=== PATIENT | female | born 1950 | race Caucasian/White ===

== ENCOUNTER 2021-11-06 16:40 | Outpatient (REF) | payer MEDICARE, SELFPAY ==
[2021-11-06 17:22] LABS: Influenza A PCR NEGATIVE (Negative); Influenza B PCR NEGATIVE (Negative); Resp Syncy Virus RNA Qual PCR NEGATIVE (Negative); SARS COV2 PCR INHOUSE NEGATIVE (Negative)
== END 2021-11-06 16:41 | disposition home or self-care (01) ==
LOC: HO.LNP 16:40
PROVIDERS: Visit Provider Physician Assistant Medical
DX: Z20.822 Contact with and (suspected) exposure to COVID-19 (principal); R05.9 Cough, unspecified
CPT/HCPCS: 0241U

== ENCOUNTER 2024-08-28 11:01 | Outpatient (AMB) | payer MEDICARE, SELFPAY ==
--- NOTE | 2024-08-28 11:22 | MHC.PC.OV ---
Vital Signs 08/28/24 11:25 Height 5 ft 4 in Weight 181 lb BMI 31.1 BP 152/88 H Blood Pressure Location Lt brachial Position Sitting Pulse 68 Pulse Source Pulse Oximeter Temp 97.3 F Temp Source Temporal Artery Scan Pulse Oximetry (%) 98 Oxygen Delivery Method Room Air Intake Visit Reasons: establish care Mid Level Net Developer Required: No Accompanied by: Self / Same As Patient Allergies erythromycin base (ERYTHROMYCIN BASE) Allergy (Unknown, Verified 08/28/24 11:39) UNKNOWN Medication List - Last Reconciled 08/28/24 by Stephen Ely PA-C No Known Home Meds Tobacco use date assessed: 08/28/24 Fall risk assessment: No Falls in past year Last assessed Fall Risk: 08/28/24 Dental Screening Dental Screen Date: 08/28/24 Did you have a dental visit in the last 12 months?: Yes Did you have a dental problem in the last 6 months where you did not have access to dental care?: No Was dental information given to patient?: Patient has dentist HPI establish care HPI Details The patient is a 74-year-old female presenting with a wellness visit to establish care and address preventative health measures. Previous PCP was Dr. Gomez The patient reports a history of elevated blood pressure readings in clinical settings, which she attributes to anxiety, commonly referred to as white coat hypertension. She monitors her blood pressure at home, where it is typically within normal limits. The patient has received multiple COVID-19 vaccinations, with the most recent dose administered recently. She has not received a tetanus vaccine in the last ten years and is considering a pneumococcal vaccine. She plans to receive the shingles vaccine, which is currently on her radar. The patient is a retired principal and reports a social history of occasional alcohol consumption, primarily wine, and denies any history of smoking. She maintains an active lifestyle, participating in swimming and exercise classes multiple times a week. Will consider and discuss mammogram, bone density in colorectal cancer screening at next office visit [facility] Social History (Updated 08/28/24 @ 11:45 by Stephen Ely PA-C) Housing: House Alcohol intake: current Alcohol type: wine Patient Tobacco Use Status: Never used Tobacco e-Cigarette/Vaping Use: Never Used service: No Current occupational status: retired Current occupation: Teacher/ principle Cognitive needs: No Hearing needs: No Vision needs: No Questionnaire PHQ-9 Over the last 2 weeks, how often have you been bothered by any of the following problems? 1. Little interest or pleasure in doing things: not at all 2. Feeling down, depressed, or hopeless: not at all 3. Trouble falling or staying asleep, or sleeping too much: not at all 4. Feeling tired or having little energy: not at all 5. Poor appetite or overeating: not at all 6. Feeling bad about yourself - or that you are a failure or have let yourself or your family down: not at all 7. Trouble concentrating on things, such as reading the newspaper or watching television: not at all 8. Moving or speaking so slowly that other people could have noticed. Or the opposite - being so fidgety or restless that you have been moving around a lot more than usual: not at all 9. Thoughts that you would be better off or of hurting yourself in some way: not at all Total score: 0 Depression Screening Interpretation: Negative Depression Screening Done: Yes 27194 - PHQ-9 Billing: Yes Source: Developed by Drs. Lul Delong, Kirsten Loza, Alex Rao and colleagues, with an educational litzy from [employer]. Thrive Questionnaire Date Thrive assessed: 08/28/24 I am a: Patient What is your living situation today?: I have a steady place to live Within the past 12 months, did the food you bought not last and you didn't have the money to get more?: Never true Within the past 12 months, did you worry whether your food would run out before you got money to buy more?: Never true Do you have trouble paying for medicines?: No Do you have trouble getting transportation to medical appointments?: No Do you have trouble paying your heating and electricity bill?: No Do you have trouble taking care of your child, family member or friend?: No Do you have trouble with day-to-day activities such as bathing, preparing meals, shopping, managing finances, etc.?: No Are you currently unemployed and looking for a job?: No Are you interested in more education?: No Please select the resources that you would like help with: None Currently or been in a relationship where the following occur: No concerns reported THRIVE Score: 0 AUDIT C Alcohol Use Questionnaire (AUDIT-C) 1. How often do you have a drink containing alcohol?: 2-4 times a month 2. How many drinks containing alcohol do you have on a typical day when you are drinking?: 1 or 2 3. How often do you have six or more drinks on one occasion?: Never Total Score: 2 PATTI-7 AMB Questionnaire PATTI-7 Date PATTI - 7 assessed: 08/28/24 Feeling nervous, anxious, or on edge: 0 = Not at all Not being able to stop or control worryin = Not at all Worrying too much about different things: 0 = Not at all Trouble relaxin = Not at all Being so restless that it is hard to sit still: 0 = Not at all Becoming easily annoyed or irritable: 0 = Not at all Feeling afraid as if something awful might happen: 0 = Not at all Total PATTI-7 score (0-4 normal; 5-9 mild; 10-14 moderate; 15-21 severe): 0 Source: Developed by Drs. Lul Delong, Kirsten Loza, Alex Rao and colleagues, with an educational litzy from [employer]. PATTI-7 Assessment Billing PATTI-7 Assessment Tool: PATTI-7 Assessment 07347 Review of Systems Const Denies headache(s) Eyes Denies loss of vision ENT Denies vertigo, Denies dizziness, Denies headache(s) and Denies sore throat Card Denies chest pain, Denies leg edema and Denies lightheadedness Resp Denies cough, Denies hemoptysis and Denies wheezing GI Denies abdominal pain, Denies melena, Denies constipation, Denies diarrhea and Denies vomiting Denies urinary frequency, Denies dysuria and Denies urinary urgency Musc Denies arthralgias, Denies joint swelling, Denies numbness and Denies tingling Neuro Denies Abnormal speech present, Denies behavioral changes, Denies vertigo, Denies dizziness, Denies headache(s), Denies loss of vision, Denies memory loss, Denies numbness and Denies tingling Psych Denies anxiety, Denies behavioral changes, Denies depression, Denies memory loss and Denies panic attacks Wilfrid/Lymph Denies easy bleeding and Denies easy bruising Aller/Immun Denies wheezing Physical exam (Primary Care) Vital Signs: Last Vital Signs Temp 97.3 F 08/28/24 11:25 Pulse 68 08/28/24 11:25 BP 152/88 H 08/28/24 11:25 Pulse Ox 98 08/28/24 11:25 Oxygen Delivery Method Room Air 08/28/24 11:25 BMI result Body Mass Index 31.1 BMI Assessment/Plan discussion: High BMI High, discussed plan: lifestyle, weight reduction, dietary and physical activity Tobacco/Smoking Status: Tobacco use Status Tobacco use date assessed 08/28/24 08/28/24 11:30 Patient Tobacco Use Status Never used Tobacco 08/28/24 11:45 e-Cigarette/Vaping Use Never Used 08/28/24 11:45 PHQ-9: PHQ-9 Score PHQ-9: Total score 0 08/28/24 13:12 Depression Screening Interpretation: Negative Thrive Assessment: Date of Thrive Assessment Date Thrive assessed 08/28/24 08/28/24 11:30 Currently or been in a relationship where the following occur: No concerns reported Const General: healthy appearing, no acute distress, alert and awake Nutritional Appearance: well nourished Orientation/consciousness: oriented to person, oriented to place and oriented to time HENMT Ears: TM's normal bilaterally General nose exam: Normal nasal mucous membranes and turbinates present Eyes Conjunctivae: conjunctivae normal Sclerae: sclerae normal Pupils: Equal, round and reactive pupils present Neck Neck: Yes no lymphadenopathy and Yes no JVD Thyroid: Thyroid normal Carotids: no bruits Resp Effort & Inspection: normal respiratory effort and not tachypneic Auscultation: no crackles, no rales, no rhonchi and no wheezes Cardio Rate: regular rate Rhythm: regular rhythm Heart sounds: no murmurs and normal S1 and S2 GI Palpation (GI): Soft to palpation, nontender, no hepatomegaly and no splenomegaly Auscultation: normal bowel sounds Skin General skin exam: no rashes or lesions noted and dry skin Neuro General: oriented to person, oriented to place and oriented to time Cranial nerves: Yes Equal, round and reactive pupils present Speech: No Abnormal speech present Gait exam (Neuro): Normal gait present Motor exam (neuro): no tremor noted Extrem Right upper extremity: full ROM Left upper extremity: full ROM Right lower extremity: full ROM; no edema Left lower extremity: full ROM; no edema Psych Mental Status: mental status grossly normal Speech and movement: Normal speech and movement present Affect: normal affect Attitude: cooperative Thought process: Normal thought process present Coding Level of Care Code New Pt Level 4 (55499) Diagnoses Class 1 obesity E66.811 Elevated blood pressure reading R03.0 Screening for diabetes mellitus (DM) Z13.1 Additional Codes PATTI-7 Assessment Billing - PATTI-7 Assessment Tool: PATTI-7 Assessment 48001 ([id number]) PHQ-9 - 11754 - PHQ-9 Billing: Yes ([id number]) Assessment & Plan Assessment & Plan (1) Class 1 obesity: Code(s): E66.811 - Obesity, class 1 Category: Medical Plan: Patient does understand her BMI is over 30 will continue working on being more physically active adapting to better eating habits to reduce her weight. (2) Elevated blood pressure reading: Code(s): R03.0 - Elevated blood-pressure reading, without diagnosis of hypertension Category: Medical Plan: Has not noted to have elevated blood pressure readings here in the office, she reports she has white coat hypertension and continue monitoring pressure from time to time at home. (3) Screening for diabetes mellitus (DM): Code(s): Z13.1 - Encounter for screening for diabetes mellitus Category: Medical Plan: As per HPI Orders: Orders Complete Blood Count no Diff 08/28/24 Z13.1 - Encounter for screening for diabetes mellitus Comprehensive [place]. Panel Fast 08/28/24 Z13.1 - Encounter for screening for diabetes mellitus
[2024-08-28 11:25] VITALS: BP 152/88; PULSE 68; TEMP 36.3; O2SAT 98; BMI 31.1
--- OUTSIDE RECORDS SUMMARY | 2024-08-28 12:14 | XMS_ITS | Patient Health Record ---
Author Organization [facility] Address [address] [place] [address] Care Team Providers Care Head Of Sales Name Role Phone Lul Smalls Unavailable [phone] Reason For Referral No Information Plan Of Treatment No Information
== END 2024-08-28 12:00 | disposition home or self-care (01) ==
LOC: HO.HMCH 11:03
PROVIDERS: PCP Physician Assistant; Visit Provider Physician Assistant
DX: R03.0 Elevated blood-pressure reading, without diagnosis of hypertension (principal); E66.811 Obesity, class 1; Z68.31 Body mass index [BMI] 31.0-31.9, adult; Z13.1 Encounter for screening for diabetes mellitus

== ENCOUNTER → 2024-08-28 11:01 | Outpatient (BNVA) | payer MEDICARE, SELFPAY | PROVIDERS: PCP Physician Assistant; Visit Provider Physician Assistant | DX: E66.811 Obesity, class 1 (principal); Z68.31 Body mass index [BMI] 31.0-31.9, adult; R03.0 Elevated blood-pressure reading, without diagnosis of hypertension; Z71.3 Dietary counseling and surveillance | CPT/HCPCS: 96127; 99202 ==

== ENCOUNTER 2025-01-09 06:38 | Outpatient (REF) | payer MEDICARE, SELFPAY ==
--- OUTSIDE RECORDS SUMMARY | 2025-01-09 06:42 | XMS_ITS | Patient Health Record ---
Author Organization [facility] Address [address] [place] [address] Care Team Providers Care Organizational Consultant Name Role Phone Lul Smalls Unavailable [phone] Reason For Referral No Information Plan Of Treatment No Information
[2025-01-09 10:24] LABS: Hematocrit 43.9 % (37.0-47.0); Hemoglobin 14.4 g/dl (12.0-16.0); Mean Corpuscular HGB Conc 32.8 g/dl (31.0-35.0); Mean Corpuscular Hemoglobin 30.1 pg (27.0-33.0); Mean Corpuscular Volume 91.8 fL (80.0-98.0); NRBC Abs Auto 0.000 X10*3/uL (0.0-0.012); NRBC Pct Auto 0.0 /100WBC (0.0-0.2); Platelet Count 220 X10*3/uL (160-400); Red Blood Count 4.78 X10*6/uL (4.20-5.50); White Blood Count 4.8 X10*3/uL (4.8-10.8)
[2025-01-09 11:02] LABS: Alanine Aminotransferase 13 U/L (0-31); Albumin Level 4.3 g/dL (3.5-5.0); Alkaline Phosphatase 103 U/L (39-117); Anion Gap 10 (12-20); Aspartate Amino Transferase 18 U/L (5-31); Blood Urea Nitrogen 16 mg/dL (9-16); Calcium 9.2 mg/dL (8.4-10.2); Carbon Dioxide 26 mmol/L (22-29); Chloride 110 mmol/L (96-108); Estimated Glomerular Filt Rate > 60; Potassium 4.1 mmol/L (3.3-5.1); Sodium 142 mmol/L (135-145); Total Protein 6.8 g/dL (6.5-8.0)
== END 2025-01-09 06:39 | disposition home or self-care (01) ==
LOC: HO.HMGCLDS 06:38
PROVIDERS: PCP Physician Assistant; Visit Provider Physician Assistant
DX: Z13.1 Encounter for screening for diabetes mellitus (principal)
CPT/HCPCS: 36415; 80053; 85027

== ENCOUNTER 2025-01-14 11:15 | Outpatient (AMB) | payer MEDICARE, SELFPAY ==
--- NOTE | 2025-01-14 11:19 | MHC.PC.OV ---
Vital Signs 01/14/25 11:20 Height 5 ft 4 in Weight 170 lb 4 oz BMI 29.2 Blood Pressure Location Lt brachial Position Sitting Pulse Source Pulse Oximeter Temp 97.3 F Temp Source Temporal Artery Scan Oxygen Delivery Method Room Air Intake Visit Reasons: PE Intake Note: Patient is here today for a physical. Price Analyst Required: No Alteration Workroom Supervisor: Not Required per policy Accompanied by: Self / Same As Patient Allergies erythromycin base (ERYTHROMYCIN BASE) Allergy (Unknown, Verified 01/14/25 11:20) UNKNOWN Tobacco use date assessed: 01/14/25 Fall risk assessment: No Falls in past year Last assessed Fall Risk: 01/14/25 Dental Screening Dental Screen Date: 08/28/24 [facility] Social History Housing: House Alcohol intake: current Alcohol type: wine Patient Tobacco Use Status: Never used Tobacco e-Cigarette/Vaping Use: Never Used service: No Current occupational status: retired Current occupation: Teacher/ principle Cognitive needs: No Hearing needs: No Vision needs: No Questionnaire Thrive Questionnaire Date Thrive assessed: 08/28/24 I am a: Patient What is your living situation today?: I have a steady place to live Within the past 12 months, did the food you bought not last and you didn't have the money to get more?: Never true Within the past 12 months, did you worry whether your food would run out before you got money to buy more?: Never true Do you have trouble paying for medicines?: No Do you have trouble getting transportation to medical appointments?: No Do you have trouble paying your heating and electricity bill?: No Do you have trouble taking care of your child, family member or friend?: No Do you have trouble with day-to-day activities such as bathing, preparing meals, shopping, managing finances, etc.?: No Are you currently unemployed and looking for a job?: No Are you interested in more education?: No Please select the resources that you would like help with: None Currently or been in a relationship where the following occur: No concerns reported THRIVE Score: 0 PATTI-7 AMB Questionnaire PATTI-7 Date PATTI - 7 assessed: 08/28/24 Source: Developed by Drs. Lul Delong, Kirsten B.W. Alex Loza and colleagues, with an educational litzy from [employer]. Physical exam (Primary Care) Tobacco/Smoking Status: Tobacco use Status Tobacco use date assessed 08/28/24 08/28/24 11:30 Patient Tobacco Use Status Never used Tobacco 08/28/24 11:45 e-Cigarette/Vaping Use Never Used 08/28/24 11:45 Thrive Assessment: Date of Thrive Assessment Date Thrive assessed 08/28/24 08/28/24 11:30 Currently or been in a relationship where the following occur: No concerns reported Coding
[2025-01-14 11:20] VITALS: BP 150/78; PULSE 94; TEMP 36.3; O2SAT 98; BMI 29.2
--- NOTE | 2025-01-14 11:27 | A.OFFVIS_ITS ---
Intake Vital Signs 01/14/25 11:20 Height 5 ft 4 in Weight 170 lb 4 oz BMI 29.2 BP 150/78 H Blood Pressure Location Lt brachial Position Sitting Pulse 94 Pulse Source Pulse Oximeter Temp 97.3 F Temp Source Temporal Artery Scan Pulse Oximetry (%) 98 Oxygen Delivery Method Room Air Intake Visit Reasons: PE Allergies morphine Allergy (Intermediate, Verified 01/14/25 11:30) Vomiting erythromycin base (ERYTHROMYCIN BASE) Allergy (Unknown, Verified 01/14/25 11:30) UNKNOWN Medication List - Last Reconciled 01/14/25 by Stephen Ely PA-C No Known Home Meds HPI PE HPI Details Patient is a 74-year-old female here today for annual wellness visit. Patient has a past medical history significant for elevated blood pressure readings. .. Hypertension: We continued to note elevated blood pressure readings. 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 .. Today we discussed patient's end of life planning, [place] of care and comprehensive care plan which was scanned into patient's documents. Laboratory Tests 12/06/18 01/09/25 20:07 06:57 RBC 4.78 Hgb 14.4 Creatinine 0.71 Fasting Glucose 94 Total Bilirubin 1.5 H 1.2 H HPI Comments History of Present Illness Details reviewed past medical history- yes reviewed surgical / hospitalization history- yes reviewed current medications- yes reviewed family history- yes home safety throw rugs? grab bars? raised toilet seat? working smoke detectors? activities of daily living difficulty bathing or showering? difficulty dressing? difficulty using the toilet? difficulty getting in and out of bed? difficulty walking? receives help from other person's with any of the above tasks? instrumental activities of daily living uses telephone - gets to place out of walking distance- go shopping for groceries- repairs own meals- does own minor home maintenance- does own laundry- does own housework- manages own money- currently takes medication- end of life planning discussed advanced directives- yes advanced directives on file? discussed wishes expressed in advanced directives. fall risk have you had any falls with injuries in the past year? have you had 2 or more falls in the past year? fall risk assessment: [facility] Surgical History History of 2 sections History of cholecystectomy Social History Housing: House Alcohol intake: current Alcohol type: wine Patient Tobacco Use Status: Never used Tobacco e-Cigarette/Vaping Use: Never Used service: No Current occupational status: retired Current occupation: Teacher/ principle Cognitive needs: No Hearing needs: No Vision needs: No Questionnaire Medicare Wellness Checkup [age] What gender do you identify with?: female During the past 4 weeks, how much have you been bothered by emotional problems such as feeling anxious, depressed, irritable, sad or downhearted, and blue?: not at all During the past 4 weeks, has your physical & emotional health limited your social activities with family, friends, neighbors, or groups?: not at all During the past 4 weeks, how much bodily pain have you generally had?: no pain During the past 4 weeks, was someone available to help you if you needed & wanted help?: yes, as much as I wanted During the past 4 weeks, what was the hardest physical activity you could do for at least 2 minutes?: very heavy Can you get to places out of walking distance without help? (For eg., can you travel alone on buses, taxis or drive your car?): Yes Can you go shopping for groceries or clothes without someone's help?: Yes Can you prepare your own meals?: Yes Can you do your housework without help?: Yes Because of any health problems, do you need the help of another person with your personal care needs such as eating, bathing, dressing or getting around the house?: No Can you handle your own money without help?: Yes During the past 4 weeks, how would you rate your health in general?: excellent During the past 4 weeks how have things been going for you?: pretty well Are you having difficulties driving your car?: no Do you always fasten your seat belt when you are in a car?: yes, usually During past 4 weeks, have you been bothered by the following: never: Falling or dizzy when standing up, Sexual problems?, Trouble eating well?, Teeth or denture problems?, Problems using the telephone? and Tiredness or fatigue? Have you fallen 2 or more times in the past year?: No Are you afraid of falling?: No Are you a smoker?: no During the past 4 weeks, how many drinks of wine, beer, or other alcoholic beverages did you have?: 1 drink or less per week Do you exercise for about 20 minutes 3 or more times a week?: yes, all the time Have you been given information to help with the following?: yes: Hazards in your house that might hurt you? and no: Keeping track of your medications? How often do you have trouble taking medicines the way you have been told to take them?: I do not have to take medicine How confident are you that you can control & manage most of your health problems?: very confident What is your race?: White Mini Mental State Exam (MMSE) Orientation What is the (year) (season) (date) (day) (month)?: year Where are we (state) (county) (town or city) (hospital) (floor)?: town or city Attention & Calculation (CHOOSE ONE) Spell WORLD backwards (DLROW): 5 letters Score Score: 7 Activity of Daily Living Bathing - sponge bath, tub bath or shower: receives no assistance (gets in/out by self, if usual bathing means Dressing - getting clothes from closets & drawers, including inner/outer garments & fasteners.: gets clothes & gets completely dressed without help Toileting - going to the 'toilet room' for urine/bowel elimination & cleaning self/arranging clothes: goes to toilet room, cleans self, arranges clothes without help Transfer: moves in & out of bed and chair without help (may use support object) Continence: controls urination/bowel movements completely by self Feeding: feeds self without help Total Score: 0 Information obtained from: patient Using telephone: independent Traveling: independent Shopping: independent Preparing meals: independent Housework: independent Taking medicine: independent Managing money: independent PHQ-9 Over the last 2 weeks, how often have you been bothered by any of the following problems? 1. Little interest or pleasure in doing things: not at all 2. Feeling down, depressed, or hopeless: not at all 3. Trouble falling or staying asleep, or sleeping too much: not at all 4. Feeling tired or having little energy: not at all 5. Poor appetite or overeating: not at all 6. Feeling bad about yourself - or that you are a failure or have let yourself or your family down: not at all 7. Trouble concentrating on things, such as reading the newspaper or watching television: not at all 8. Moving or speaking so slowly that other people could have noticed. Or the opposite - being so fidgety or restless that you have been moving around a lot more than usual: not at all 9. Thoughts that you would be better off or of hurting yourself in some way: not at all Total score: 0 Depression Screening Interpretation: Negative Depression Screening Done: Yes 19892 - PHQ-9 Billing: Patient declined-do not bill Source: Developed by Drs. Lul Delong, Kirsten Loza, Alex Rao and colleagues, with an educational litzy from [employer]. Thrive Questionnaire Date Thrive assessed: 08/28/24 I am a: Patient What is your living situation today?: I have a steady place to live Within the past 12 months, did the food you bought not last and you didn't have the money to get more?: Never true Within the past 12 months, did you worry whether your food would run out before you got money to buy more?: Never true Do you have trouble paying for medicines?: No Do you have trouble getting transportation to medical appointments?: No Do you have trouble paying your heating and electricity bill?: No Do you have trouble taking care of your child, family member or friend?: No Do you have trouble with day-to-day activities such as bathing, preparing meals, shopping, managing finances, etc.?: No Are you currently unemployed and looking for a job?: No Are you interested in more education?: No Please select the resources that you would like help with: None Currently or been in a relationship where the following occur: No concerns r eported THRIVE Score: 0 PATTI-7 AMB Questionnaire PATTI-7 Date PATTI - 7 assessed: 08/28/24 Source: Developed by Drs. Lul Delong, Kirsten Loza, Alex Rao and colleagues, with an educational litzy from [employer]. Physical Exam Vital Signs: Last Vital Signs Temp 97.3 F 01/14/25 11:20 Pulse 94 01/14/25 11:20 BP 150/78 H 01/14/25 11:20 Pulse Ox 98 01/14/25 11:20 Oxygen Delivery Method Room Air 01/14/25 11:20 BMI result Body Mass Index 29.2 HEENT Other: hearing screening whisper test- passed Eyes Other: vision screening- 20 20 OS OD OU Other: urinary incontinence? no Neuro Other: balance Romberg- normal tandem walk test- able walk-in turned test- able rise from sit to stand- within 2 seconds Assessment & Plan Assessment & Plan (1) Medicare annual wellness visit, initial: Code(s): Z00.00 - Encounter for general adult medical examination without abnormal findings Plan: As per HPI (2) HTN (hypertension): Code(s): I10 - Essential (primary) hypertension Qualifiers: Hypertension type: primary hypertension Qualified Code(s): I10 - Essential (primary) hypertension Plan: Patient's blood pressure remains slightly elevated 140s to 150 systolic. She is asymptomatic. She has been working on reducing her weight in his lines 10 lb since last office visit though blood pressure remains elevated. We did discuss starting low-dose lisinopril though will like to hold off and work on monitoring blood pressure at home and losing more weight being more physically active. Goal blood pressures to be below 140/90. (3) Breast cancer screening: Code(s): Z12.39 - Encounter for other screening for malignant neoplasm of breast Qualifiers: Breast cancer screening modality: mammogram Qualified Code(s): Z12.31 - Encounter for screening mammogram for malignant neoplasm of breast Plan: Patient interested in restarting breast cancer screening (4) Post-menopausal: Code(s): Z78.0 - Asymptomatic menopausal state Plan: Willing to do bone density (5) Colon cancer screening: Code(s): Z12.11 - Encounter for screening for malignant neoplasm of colon Plan: Patient willing to do Cologuard Orders: Orders XR DEXA axial skeleton Today Z78.0 - Asymptomatic menopausal state MM screening mammo BI Today Z12.31 - Encounter for screening mammogram for malignant neoplasm of breast, Z12.39 - Encounter for other screening for malignant neoplasm of breast Referrals Cologuard Test Z12.11 - Encounter for screening for malignant neoplasm of colon Quality Reporting (2020) Depression/Bipolar (159/160/161/177) PHQ-9: Total score: 0 Coding Level of Care Code Medicare First (G0438) Diagnoses Medicare annual wellness visit, initial Z00.00 Primary hypertension I10 Hypertension type: primary hypertension Encounter for screening mammogram for malignant neoplasm of breast Z12.31 Breast cancer screening modality: mammogram Post-menopausal Z78.0 Colon cancer screening Z12.11 CPT Codes Advance Care Planning - Time spent: 1-15 minutes, not on file ([id number]) Advance Care Planning Advance Care Planning discussion: Exists, not on file Date of discussion: 01/14/25 Forms completed: ADRIEN Time spent: 1-15 minutes, not on file Actual minutes spent: 3
--- OUTSIDE RECORDS SUMMARY | 2025-01-14 14:56 | XMS_ITS | Patient Health Record ---
Author Organization [facility] Address [address] [place] [address] Care Team Providers Care Superintendent [employer] Name Role Phone Lul Smalls Unavailable [phone] Reason For Referral No Information Plan Of Treatment No Information
== END 2025-01-14 12:11 | disposition home or self-care (01) ==
LOC: HO.HMCH 11:17
PROVIDERS: PCP Physician Assistant; Visit Provider Physician Assistant
DX: Z00.00 Encounter for general adult medical examination without abnormal findings (principal); I10 Essential (primary) hypertension; Z12.31 Encounter for screening mammogram for malignant neoplasm of breast; Z78.0 Asymptomatic menopausal state; Z12.11 Encounter for screening for malignant neoplasm of colon